=== PATIENT | male | born 1975 | race Caucasian/White ===

== ENCOUNTER 2024-01-28 18:04 | Emergency (ER) | payer OTHER ==
[~2024-01-28] VITALS: Ht 167.6 cm; Wt 64.0 kg
[2024-01-28 18:09] VITALS: BP 118/79; PULSE 105; RESP 18; TEMP 98.2; O2SAT 98
== END 2024-01-28 23:52 | disposition left against medical advice (07) ==
LOC: ER 18:04
DX: R53.1 Weakness (principal); J45.909 Unspecified asthma, uncomplicated
CPT/HCPCS: 99283